=== PATIENT | female | born 1965 | race Caucasian/White ===

== ENCOUNTER → 2016-08-05 | Outpatient (CLI) | payer OTHER ==
--- NOTE | 2016-08-05 12:28 | XR ---
EXAMINATION TYPE: XR chest 2V DATE OF EXAM: 08/05/2016 HISTORY: R05 Cough. REFERENCE: Previous study dated 12/28/2015. FINDINGS: Lung volumes are mildly prominent. The lungs are clear. Pleural space are clear. Heart size is normal. IMPRESSION: NO ACUTE INTRATHORACIC ABNORMALITY.
--- NOTE | 2016-08-13 11:34 | P.ARTDOP ---
Arterial Doppler LOWER EXTREMITY ARTERIAL DOPPLER: DATE OF SERVICE: 08/05/2016 Reason for study: Bilateral leg pain Doppler waveforms: Multiphasic bilaterally throughout but blunted distally Pulse volume recording: mild blunting Pressure gradients: Mild distal gradients Ankle-brachial index: greater than 1 on the right and 0.95 on the left Toe preasure 77on the right 67 on the left Impression:Mild distal disease. Does not directly correlated with symptoms
== END | disposition home or self-care (01) ==
LOC: RADUSWWP 11:50
PROVIDERS: ATTEND Family Medicine
DX: M79.604 Pain in right leg (principal); M79.605 Pain in left leg; R05 Cough
CPT/HCPCS: 71020; 93923

== ENCOUNTER 2017-09-16 09:05 | Emergency (ER) | payer MEDICARE, OTHER ==
[2017-09-16] MEDS ORDERED: SODIUM CHLORIDE 0.9% 1,000 ML IV STA ×2 (09:10→10:06)
[2017-09-16 09:13] VITALS: TEMP 97.7
--- NOTE | 2017-09-16 09:14 | ED ---
Weakness HPI - General Stated complaint: POSS CVA Time Seen by Provider: 09/16/17 09:05 Source: patient, EMS, RN notes reviewed, old records reviewed Mode of arrival: EMS - History of Present Illness Initial comments: This is a 52-year-old female history of CVA depression was at a bus stop on the way to the [facility] this morning when she felt like she was falling or leaning to the left. EMS was called she was brought here for evaluation per the assessment she had a blood sugar of 77 with a blood pressure 113/70 no new deficits that she has have some left residual deficit from her previous CVA was some question of whether she has some lid lag on the left. She denies any headache dizziness fevers chills nausea vomiting sweats or other symptoms at this time. MD Complaint: difficulty walking - Related Data Home Medications Medication Instructions Recorded Confirmed ARIPiprazole IM [Abilify Maintena] 400 mg IM Q28D 07/27/15 09/16/17 Albuterol Inhaler [Ventolin Hfa 2 puff INHALATION RT-Q4H PRN 09/16/17 09/16/17 Inhaler] Albuterol Nebulized [Ventolin 2.5 mg INHALATION RT-Q4H PRN 09/16/17 09/16/17 Nebulized] Alendronate Sodium [Fosamax] 70 mg PO TU 09/16/17 09/16/17 Aspirin EC [Ecotrin Low Dose] 81 mg PO DAILY 09/16/17 09/16/17 Carvedilol [Coreg] 12.5 mg PO DAILY 09/16/17 09/16/17 Cholecalciferol [Vitamin D3] 5,000 unit PO DAILY 09/16/17 09/16/17 Cyanocobalamin (Vitamin B-12) 1,000 mcg PO DAILY 09/16/17 09/16/17 [Vitamin B-12] Lisinopril [Prinivil] 5 mg PO DAILY 09/16/17 09/16/17 Magnesium Oxide 400 mg PO DAILY 09/16/17 09/16/17 Nicotine [Nicoderm Cq] 1 patch TRANSDERM DAILY 09/16/17 09/16/17 Salmeterol Xinafoate [Serevent 1 puff INHALATION RT-BID 09/16/17 09/16/17 Diskus] Sulfamethox-Tmp 800-160Mg [Bactrim 1 tab PO Q12HR 09/16/17 09/16/17 DS 800-160 mg] guaiFENesin [Mucinex] 600 mg PO Q12HR 09/16/17 09/16/17 hydrOXYzine PAMOATE [Vistaril] 50 mg PO BID 09/16/17 09/16/17 metFORMIN HCL [Glucophage] 500 mg PO BID 09/16/17 09/16/17 traZODone HCL 100 mg PO HS 09/16/17 09/16/17 Previous Rx's Medication Instructions Recorded Ibuprofen [Motrin] 600 mg PO TID PRN #90 tab 07/26/15 Atorvastatin [Lipitor] 40 mg PO HS #30 tab 10/11/15 Clopidogrel Bisulfate [Plavix] 75 mg PO DAILY #30 tab 10/11/15 Sertraline [Zoloft] 100 mg PO HS #0 10/11/15 Allergies Allergy/AdvReac Type Severity Reaction Status Date / Time No Known Allergies Allergy Verified 10/09/15 08:47 Review of Systems ROS Statement: Those systems with pertinent positive or pertinent negative responses have been documented in the HPI. ROS Other: All systems not noted in ROS Statement are negative. Past Medical History Past Medical History: CVA/TIA, Diabetes Mellitus, Hypertension, Musculoskeletal Disorder Additional Past Medical History / Comment(s): neuropathy, psorisis, MS History of Any Multi-Drug Resistant Organisms: None Reported Past Surgical History: Hernia Repair Past Anesthesia/Blood Transfusion Reactions: No Reported Reaction Past Psychological History: Anxiety, Depression Smoking Status: Current every day smoker Past Alcohol Use History: Daily Past Drug Use History: Cocaine, Marijuana - Past Family History Mother History Unknown: Yes Additional Family Medical History / Comment(s): Patient states she has not had any contact with her parents for 16 years. Brother(s) Additional Family Medical History / Comment(s): He has one brother that she has not been in contact with. Patient has one adopted sister. Patient has one daughter that is healthy. Father History Unknown: Yes Additional Family Medical History / Comment(s): unknown - pt poor historian General Exam - General Exam Comments Initial Comments: Is a well-developed well-nourished awake alert oriented 3 female General appearance: alert, in no apparent distress Head exam: Present: atraumatic, normocephalic, normal inspection Eye exam: Present: normal appearance, PERRL, other (Very slight evidence of left lateral lag residual from her previous CVA she states). Absent: scleral icterus, conjunctival injection, periorbital swelling ENT exam: Present: mucous membranes dry Neck exam: Present: normal inspection. Absent: tenderness, meningismus, lymphadenopathy Respiratory exam: Present: normal lung sounds bilaterally. Absent: respiratory distress, wheezes, rales, rhonchi, stridor Cardiovascular Exam: Present: regular rate, normal rhythm, normal heart sounds. Absent: systolic murmur, diastolic murmur, rubs, gallop, clicks GI/Abdominal exam: Present: soft, normal bowel sounds. Absent: distended, tenderness, guarding, rebound, rigid Extremities exam: Present: normal inspection, full ROM, normal capillary refill. Absent: tenderness, pedal edema, joint swelling, calf tenderness Back exam: Present: normal inspection Neurological exam: Present: alert, oriented X3, CN II-XII intact, motor sensory deficit (Slight sensory deficits left lower extremity residual from her previous stroke she states) Psychiatric exam: Present: normal affect, normal mood Skin exam: Present: warm, dry, intact, normal color. Absent: rash Course Vital Signs 09/16/17 09/16/17 09:11 10:44 Temperature 97.7 F Pulse Rate 62 73 Pulse Rate [ 58 L [employer] ] Pulse Rate [ 77 Sitting] Pulse Rate [ 73 Standing] Respiratory 16 18 Rate Blood Pressure 118/60 101/57 Blood Pressure 106/58 [Right Arm Supine] Blood Pressure 101/57 [Sitting] Blood Pressure 109/57 [Standing] O2 Sat by Pulse 95 97 Oximetry - Reevaluation(s) Reevaluation #1: 09/16/17 11:35 Reevaluation after IV fluids patient does feel improved no new findings EKG Findings - EKG Results: EKG: interpreted by AUDIE, sinus rhythm (Sinus rhythm of 60. Interval 150 to QRS 88 QT since QTC 422/422 evidence of early repolarization no acute ST-T wave changes) Medical Decision Making - Medical Decision Making I did discuss the findings with the patient the presentation is not consistent with CVA or TIA. Patient had some weakness likely secondary to dehydration. Patient wants to go home she'll be discharged with follow-up with her doctor she is encouraged to increase her oral fluid consumption - Lab Data Result diagrams: 09/16/17 09:12 09/16/17 09:12 Lab Results 09/16/17 09/16/17 09/16/17 Range/Units 09:12 09:12 09:12 WBC (3.8-10.6) k/uL RBC (3.80-5.40) m/uL Hgb (11.4-16.0) gm/dL Hct (34.0-46.0) % MCV (80.0-100.0) fL MCH (25.0-35.0) pg MCHC (31.0-37.0) g/dL RDW (11.5-15.5) % Plt Count (150-450) k/uL Neutrophils % % Lymphocytes % % Monocytes % % Eosinophils % % Basophils % % Neutrophils # (1.3-7.7) k/uL Lymphocytes # (1.0-4.8) k/uL Monocytes # (0-1.0) k/uL Eosinophils # (0-0.7) k/uL Basophils # (0-0.2) k/uL Sodium 135 L (137-145) mmol/L Potassium 5.4 H (3.5-5.1) mmol/L Chloride 108 H (98-107) mmol/L Carbon Dioxide 19 L (22-30) mmol/L Anion Gap 8 mmol/L BUN 28 H (7-17) mg/dL Creatinine 1.80 H (0.52-1.04) mg/dL Est GFR (CKD-EPI)AfAm 37 (>60 ml/min/1.73 sqM) Est GFR (CKD-EPI)NonAf 32 (>60 ml/min/1.73 sqM) Glucose 88 (74-99) mg/dL Calcium 9.5 (8.4-10.2) mg/dL Magnesium 2.0 (1.6-2.3) mg/dL Total Bilirubin 0.3 (0.2-1.3) mg/dL AST 24 (14-36) U/L ALT 23 (9-52) U/L Alkaline Phosphatase 57 (38-126) U/L Ammonia <9 (<30) umol/L Total Creatine Kinase 125 (30-135) U/L CK-MB (CK-2) 1.1 (0.0-2.4) ng/mL CK-MB (CK-2) Rel Index 0.9 Troponin I <0.012 (0.000-0.034) ng/mL Total Protein 6.5 (6.3-8.2) g/dL Albumin 4.0 (3.5-5.0) g/dL Amylase 66 (30-110) U/L Lipase 62 (23-300) U/L Serum Alcohol <10 mg/dL 09/16/17 Range/Units 09:12 WBC 8.2 (3.8-10.6) k/uL RBC 4.58 (3.80-5.40) m/uL Hgb 12.9 (11.4-16.0) gm/dL Hct 38.7 (34.0-46.0) % MCV 84.5 (80.0-100.0) fL MCH 28.1 (25.0-35.0) pg MCHC 33.2 (31.0-37.0) g/dL RDW 12.9 (11.5-15.5) % Plt Count 343 (150-450) k/uL Neutrophils % 63 % Lymphocytes % 29 % Monocytes % 4 % Eosinophils % 2 % Basophils % 0 % Neutrophils # 5.1 (1.3-7.7) k/uL Lymphocytes # 2.4 (1.0-4.8) k/uL Monocytes # 0.3 (0-1.0) k/uL Eosinophils # 0.2 (0-0.7) k/uL Basophils # 0.0 (0-0.2) k/uL Sodium (137-145) mmol/L Potassium (3.5-5.1) mmol/L Chloride (98-107) mmol/L Carbon Dioxide (22-30) mmol/L Anion Gap mmol/L BUN (7-17) mg/dL Creatinine (0.52-1.04) mg/dL Est GFR (CKD-EPI)AfAm (>60 ml/min/1.73 sqM) Est GFR (CKD-EPI)NonAf (>60 ml/min/1.73 sqM) Glucose (74-99) mg/dL Calcium (8.4-10.2) mg/dL Magnesium (1.6-2.3) mg/dL Total Bilirubin (0.2-1.3) mg/dL AST (14-36) U/L ALT (9-52) U/L Alkaline Phosphatase (38-126) U/L Ammonia (<30) umol/L Total Creatine Kinase (30-135) U/L CK-MB (CK-2) (0.0-2.4) ng/mL CK-MB (CK-2) Rel Index Troponin I (0.000-0.034) ng/mL Total Protein (6.3-8.2) g/dL Albumin (3.5-5.0) g/dL Amylase (30-110) U/L Lipase (23-300) U/L Serum Alcohol mg/dL - Radiology Data Radiology results: report reviewed (I did review the imaging and report no acute findings.), image reviewed Disposition Clinical Impression: Syncope, near, Dehydration Disposition: HOME SELF-CARE Condition: Good Instructions: Near Syncope (ED), Dehydration (ED) Is patient prescribed a controlled substance at d/c from ED?: No Referrals: [facility] [Primary Care Provider] - 1-2 days
[2017-09-16 09:35] LABS: Basophils % (A) 0 %; Eosinophils # (A) 0.2 k/uL (0-0.7); Eosinophils % (A) 2 %; HCT 38.7 % (34.0-46.0); HGB 12.9 gm/dL (11.4-16.0); Lymphocytes # (A) 2.4 k/uL (1.0-4.8); Lymphocytes % (A) 29 %; MCH 28.1 pg (25.0-35.0); MCHC 33.2 g/dL (31.0-37.0); MCV 84.5 fL (80.0-100.0); Mean Platelet Volume 6.1; Monocytes # (A) 0.3 k/uL (0-1.0); Monocytes % (A) 4 %; Neutrophils # (A) 5.1 k/uL (1.3-7.7); Neutrophils % (A) 63 %; Platelet Count 343 k/uL (150-450); RBC 4.58 m/uL (3.80-5.40); RDW 12.9 % (11.5-15.5); WBC 8.2 k/uL (3.8-10.6)
[2017-09-16 09:47] LABS: ALT 23 U/L (9-52); AST 24 U/L (14-36); Alcohol <10 mg/dL; Alkaline Phosphatase 57 U/L (38-126); Amylase 66 U/L (30-110); Anion Gap 8 mmol/L; Blood Urea Nitrogen 28 mg/dL (7-17); Calcium 9.5 mg/dL (8.4-10.2); Carbon Dioxide 19 mmol/L (22-30); Chloride 108 mmol/L (98-107); Glucose 88 mg/dL (74-99); Lipase 62 U/L (23-300); Potassium 5.4 mmol/L (3.5-5.1); Sodium 135 mmol/L (137-145); Total Bilirubin 0.3 mg/dL (0.2-1.3); Total Protein 6.5 g/dL (6.3-8.2)
--- NOTE | 2017-09-16 09:57 | CT ---
EXAMINATION TYPE: CT brain wo con DATE OF EXAM: 09/16/2017 HISTORY: Pain or headache per order. History of stroke with new onset left-sided weakness CT DLP: 1088 mGycm. Automated Exposure Control for Dose Reduction was Utilized. TECHNIQUE: CT scan of the head is performed without contrast. COMPARISON: CT brain May 27, 2015. MRI brain October 09, 2015. FINDINGS: There is no acute intracranial hemorrhage or midline shift identified. There is diffuse v entricular and sulcal prominence consistent with diffuse age-related cerebral atrophy. There is some low-attenuation in the periventricular white matter consistent with chronic small vessel ischemic ch winsome. Area of low-attenuation right frontal parietal region extending into superior temporal lobe li irma reflects progression of MCA distribution infarct from prior MRI October 09, 2015. There is ex vac uo dilatation of the right lateral ventricle at level of temporal and occipital horns. Soft tissue de nsity bilateral external auditory canals is felt to reflect cerumen. The globes are intact and the vi sualized sinuses are clear. IMPRESSION: No acute intracranial hemorrhage or midline shift. There is background mild diffuse age -related cerebral atrophy and mild to moderate chronic small vessel ischemic change redemonstrated. T here is presumed old infarct right MCA distribution redemonstrated. If clinical concern for acute stroke persists further investigation with MRI study may be warranted.
[2017-09-16 09:59] LABS: Creatine Kinase 125 U/L (30-135)
[2017-09-16 10:12] LABS: Creatine Kinase MB 1.1 ng/mL (0.0-2.4); Troponin I <0.012 ng/mL (0.000-0.034)
[2017-09-16 10:48] VITALS: RESP 18
[2017-09-16 12:08] VITALS: BP 114/56; PULSE 94
[2017-09-16 12:17] LABS: Glucose,Whole Blood 99 mg/dL (75-99)
== END 2017-09-16 12:06 | disposition home or self-care (01) ==
LOC: EC 09:05
DX: E86.0 Dehydration (principal); R55 Syncope and collapse; R26.2 Difficulty in walking, not elsewhere classified; E11.40 Type 2 diabetes mellitus with diabetic neuropathy, unspecified; I10 Essential (primary) hypertension; L40.9 Psoriasis, unspecified; F32.9 Major depressive disorder, single episode, unspecified; F41.9 Anxiety disorder, unspecified; F17.200 Nicotine dependence, unspecified, uncomplicated; Z86.73 Personal history of transient ischemic attack (TIA), and cerebral infarction without residual deficits; Z79.82 Long term (current) use of aspirin; Z79.84 Long term (current) use of oral hypoglycemic drugs; Z79.899 Other long term (current) drug therapy
CPT/HCPCS: 36415; 70450; 80053; 80320; 82140; 82150; 82550; 82553; 83690; 83735; 84484; 85025; 93005; 96360; 96361; 99285

== ENCOUNTER 2018-01-25 13:27 | Emergency (ER) | payer MEDICARE, OTHER ==
--- NOTE | 2018-01-25 14:03 | ED ---
Abdominal Pain HPI - General Chief Complaint: Abdominal Pain Stated Complaint: ABDOMINAL PAIN Time Seen by Provider: 01/25/18 13:59 Source: patient Mode of arrival: ambulatory Limitations: no limitations - History of Present Illness Initial Comments: 52-year-old female with past medical history of hypertension, type 2 diabetes [id number], previous CVAs/TIAs presenting today for chief complaint of right upper quadrant pain x 1.5 ago. Patient states that about half hour prior to arrival patient experienced sharp right upper quadrant pain that lasted for half an hour, at this time she states that she was playing candy crush in bed denies radiation of the pain. Patient denies any chest pain, shortness breath, dyspnea on exertion, diaphoresis, jaw pain, upper extremity paresthesias/pain, neck pain, recent meal/oral intake, drug use, or cough, sputum production, wheezing, exogenous estrogen use, calf pain/redness, history of cancer, immobilization or recent surgery, previous DVT/PE hemoptysis. pt does admit to softer stools/diarrhea for the past week, denies melena or hematochezia. Pt states previous drug user of cocaine, denies current use states 3 years clean. Patient states that she was concerned due to the intensity of the pain and presented for evaluation. Patient called EMS. Pt states since arrival all pain has resolved, and that "she feels silly for evening coming now". Upon arrival patient's vital signs within normal limits. Pt appears well, no signs of acute distress. - Related Data Home Medications Medication Instructions Recorded Confirmed ARIPiprazole IM [Abilify Maintena] 400 mg IM Q28D 07/27/15 01/25/18 Albuterol Inhaler [Ventolin Hfa 2 puff INHALATION RT-Q4H PRN 09/16/17 01/25/18 Inhaler] Albuterol Nebulized [Ventolin 2.5 mg INHALATION RT-Q4H PRN 09/16/17 01/25/18 Nebulized] Alendronate Sodium [Fosamax] 70 mg PO TU 09/16/17 01/25/18 Aspirin EC [Ecotrin Low Dose] 81 mg PO DAILY 09/16/17 01/25/18 Carvedilol [Coreg] 12.5 mg PO DAILY 09/16/17 01/25/18 Cholecalciferol [Vitamin D3] 5,000 unit PO DAILY 09/16/17 01/25/18 Cyanocobalamin (Vitamin B-12) 1,000 mcg PO DAILY 09/16/17 01/25/18 [Vitamin B-12] Lisinopril [Prinivil] 5 mg PO DAILY 09/16/17 01/25/18 Magnesium Oxide 400 mg PO DAILY 09/16/17 01/25/18 Nicotine [Nicoderm Cq] 1 patch TRANSDERM DAILY 09/16/17 01/25/18 Salmeterol Xinafoate [Serevent 1 puff INHALATION RT-BID 09/16/17 01/25/18 Diskus] guaiFENesin [Mucinex] 600 mg PO Q12HR PRN 09/16/17 01/25/18 hydrOXYzine PAMOATE [Vistaril] 50 mg PO BID 09/16/17 01/25/18 metFORMIN HCL [Glucophage] 500 mg PO BID 09/16/17 01/25/18 traZODone HCL 100 mg PO HS 09/16/17 01/25/18 Famotidine [Pepcid] 20 mg PO BID 01/25/18 01/25/18 Previous Rx's Medication Instructions Recorded Ibuprofen [Motrin] 600 mg PO TID PRN #90 tab 07/26/15 Atorvastatin [Lipitor] 40 mg PO HS #30 tab 10/11/15 Clopidogrel Bisulfate [Plavix] 75 mg PO DAILY #30 tab 10/11/15 Sertraline [Zoloft] 100 mg PO HS #0 10/11/15 Allergies Allergy/AdvReac Type Severity Reaction Status Date / Time No Known Allergies Allergy Verified 01/25/18 13:50 Review of Systems ROS Statement: Those systems with pertinent positive or pertinent negative responses have been documented in the HPI. ROS Other: All systems not noted in ROS Statement are negative. Constitutional: Denies: fever, chills, night sweats ENT: Denies: ear pain, throat pain Respiratory: Denies: cough, dyspnea, wheezes, hemoptysis Cardiovascular: Denies: chest pain, palpitations, dyspnea on exertion, orthopnea , edema Endocrine: Denies: fatigue Gastrointestinal: Reports: abdominal pain. Denies: nausea, vomiting, diarrhea, constipation, hematemesis, melena, hematochezia Genitourinary: Denies: urgency, dysuria, frequency, hematuria Musculoskeletal: Denies: back pain Skin: Denies: rash, lesions Neurological: Denies: headache, weakness, numbness, paresthesias, confusion Past Medical History Past Medical History: CVA/TIA, Diabetes Mellitus, Hypertension, Musculoskeletal Disorder Additional Past Medical History / Comment(s): neuropathy, psorisis, MS History of Any Multi-Drug Resistant Organisms: None Reported Past Surgical History: Hernia Repair Past Anesthesia/Blood Transfusion Reactions: No Reported Reaction Past Psychological History: Anxiety, Depression Smoking Status: Current every day smoker Past Alcohol Use History: None Reported, Daily Past Drug Use History: None Reported, Cocaine, Marijuana - Past Family History Mother History Unknown: Yes Additional Family Medical History / Comment(s): Patient states she has not had any contact with her parents for 16 years. Brother(s) Additional Family Medical History / Comment(s): He has one brother that she has not been in contact with. Patient has one adopted sister. Patient has one daughter that is healthy. Father History Unknown: Yes Additional Family Medical History / Comment(s): unknown - pt poor historian General Exam - General Exam Comments Initial Comments: General: The patient is awake and alert, in no distress, and does not appear acutely ill. Eye: +3 pupils are equal, round and reactive to light, extra-ocular movements are intact. No nystagmus. There is normal conjunctiva bilaterally. No signs of icterus. Ears, nose, mouth and throat: There are moist mucous membranes and no oral lesions. Neck: The neck is supple, there is no tenderness or JVD. Cardiovascular: There is a regular rate and rhythm. No murmur, rub or gallop is appreciated. Respiratory: Lungs are clear to auscultation, respirations are non-labored, breath sounds are equal. No wheezes, stridor, rales, or rhonchi. Gastrointestinal: No noted diaphoresis, jaundice, pallor, protecting postures or squirming. Symmetrical pigmentation of abdomen without signs of inflammation, scars, or striae. Umbilicus mildline, inverted without swelling. No dilated veins. No noted abdominal distention. No visible masses. No peristalsis, aortic pulsations , or ventral hernia. Bowel sounds audible in all 4 quadrants, unremarkable. No friction rubs or venous hums. No epigastic, hepatic or abdominal bruits. Mild tenderness of the RUQ, remainder of abdominal/pelvic exam benign no pain to light or deep palpation. Liver edge, not palpable. Spleen edge, right and left kidney not palpable. Superior bladder margin non-tender. Special Testing: Negative [place], Rovsing, McBurney, Vero, cutaneous hyperesthesia. Iliopsoas and obturator tests negative bilaterally. Negative Heel Jar test/ chuy sign. No CVA tenderness. Digital rectal exam deferred. Negative sams turners or cullens sign Musculoskeletal: Normal ROM, no tenderness. Strength 5/5. Sensation intact. Radial and DP pulses equal bilaterally 2+. Neurological: A&O x 3. CN II-XII intact, There are no obvious motor or sensory deficits. Coordination appears grossly intact. Speech is normal. Skin: Skin is warm and dry and no rashes or lesions are noted. No noted lower extremity edema, negative Homans, no pain to deep palpation of the Psychiatric: Cooperative, appropriate mood & affect, normal judgment. Limitations: no limitations Course Vital Signs 01/25/18 01/25/18 01/25/18 13:38 16:52 18:33 Temperature 98.3 F Pulse Rate 61 47 L 50 L Respiratory 18 18 18 Rate Blood Pressure 117/62 141/80 142/63 O2 Sat by Pulse 96 99 52 L Oximetry 01/25/18 01/25/18 19:30 20:12 Temperature 97.9 F Pulse Rate 53 L 52 L Respiratory 16 Rate Blood Pressure 140/50 O2 Sat by Pulse 95 96 Oximetry Medical Decision Making - Medical Decision Making 52yo female presenting with RUQ pain with diarrhea/soft stools. Concerning for abdominal process. Given pt RF concern for atypical presentation of ACS, although pt denies CP, dyspnea or other concerning symptoms. ASA given. Abdominal exam benign, mild RUQ pain. Pt denies current symptoms. Laboratory findings unremarkable as noted above. Initial troponin (-). Repeat troponin 4 hours later (-). EKG repeated, no changes. EKG reviewed by myself and Dr. Gutierrez- no signs concerning for ACS at this time. CT chest/abdomen obtained, revealing findings concerning for enteritis. US gallbladder (-). I discussed findings with patient and recommended pt obtaining CT records to review with primary provider for further follow-up. Pt verbalized understanding. Given pt history, not based on clinical findings or suspicion I recommended admission for observation for third troponin. Pt declined, stating she would like to be discharged and will not stay any longer- I urged observation of her patient continued decline. Pt states she has had no symptoms since arrival and feels fine. Pt was discharge, VS remained stable. Pt well appearing, continuing to deny symptoms. Return parameters discussed at length with patient prior to discharge, verbalized understanding. Case discussed with Dr. Gutierrez prior to discharge who agreed with impression and plan. - Lab Data Result diagrams: 01/25/18 14:35 01/25/18 14:35 Lab Results 01/25/18 01/25/18 01/25/18 Range/Units 14:35 14:35 14:35 WBC 8.6 (3.8-10.6) k/uL RBC 4.61 (3.80-5.40) m/uL Hgb 12.9 (11.4-16.0) gm/dL Hct 40.2 (34.0-46.0) % MCV 87.1 (80.0-100.0) fL MCH 28.0 (25.0-35.0) pg MCHC 32.2 (31.0-37.0) g/dL RDW 13.0 (11.5-15.5) % Plt Count 374 (150-450) k/uL Neutrophils % 58 % Lymphocytes % 31 % Monocytes % 4 % Eosinophils % 5 % Basophils % 1 % Neutrophils # 5.0 (1.3-7.7) k/uL Lymphocytes # 2.6 (1.0-4.8) k/uL Monocytes # 0.3 (0-1.0) k/uL Eosinophils # 0.5 (0-0.7) k/uL Basophils # 0.1 (0-0.2) k/uL PT (9.0-12.0) sec INR (<1.2) APTT (22.0-30.0) sec Sodium 139 (137-145) mmol/L Potassium 4.0 (3.5-5.1) mmol/L Chloride 104 (98-107) mmol/L Carbon Dioxide 24 (22-30) mmol/L Anion Gap 11 mmol/L BUN 17 (7-17) mg/dL Creatinine 0.97 (0.52-1.04) mg/dL Est GFR (CKD-EPI)AfAm 77 (>60 ml/min/1.73 sqM) Est GFR (CKD-EPI)NonAf 67 (>60 ml/min/1.73 sqM) Glucose 145 H (74-99) mg/dL Calcium 10.2 (8.4-10.2) mg/dL Total Bilirubin 0.3 (0.2-1.3) mg/dL AST 24 (14-36) U/L ALT 33 (9-52) U/L Alkaline Phosphatase 71 (38-126) U/L Total Creatine Kinase 62 (30-135) U/L CK-MB (CK-2) 0.3 (0.0-2.4) ng/mL CK-MB (CK-2) Rel Index 0.5 Troponin I <0.012 (0.000-0.034) ng/mL Total Protein 6.7 (6.3-8.2) g/dL Albumin 4.0 (3.5-5.0) g/dL Amylase 78 (30-110) U/L Lipase 93 (23-300) U/L Urine Color Urine Appearance (Clear) Urine pH (5.0-8.0) Ur Specific [place] (1.001-1.035) Urine Protein (Negative) Urine Glucose (UA) (Negative) Urine Ketones (Negative) Urine Blood (Negative) Urine Nitrite (Negative) Urine Bilirubin (Negative) Urine Urobilinogen (<2.0) mg/dL Ur Leukocyte Esterase (Negative) Urine RBC (0-5) /hpf Urine WBC (0-5) /hpf Ur Squamous Epith Cells (0-4) /hpf 01/25/18 01/25/18 01/25/18 Range/Units 14:35 16:35 18:34 WBC (3.8-10.6) k/uL RBC (3.80-5.40) m/uL Hgb (11.4-16.0) gm/dL Hct (34.0-46.0) % MCV (80.0-100.0) fL MCH (25.0-35.0) pg MCHC (31.0-37.0) g/dL RDW (11.5-15.5) % Plt Count (150-450) k/uL Neutrophils % % Lymphocytes % % Monocytes % % Eosinophils % % Basophils % % Neutrophils # (1.3-7.7) k/uL Lymphocytes # (1.0-4.8) k/uL Monocytes # (0-1.0) k/uL Eosinophils # (0-0.7) k/uL Basophils # (0-0.2) k/uL PT 11.2 (9.0-12.0) sec INR 1.1 (<1.2) APTT 25.0 (22.0-30.0) sec Sodium (137-145) mmol/L Potassium (3.5-5.1) mmol/L Chloride (98-107) mmol/L Carbon Dioxide (22-30) mmol/L Anion Gap mmol/L BUN (7-17) mg/dL Creatinine (0.52-1.04) mg/dL Est GFR (CKD-EPI)AfAm (>60 ml/min/1.73 sqM) Est GFR (CKD-EPI)NonAf (>60 ml/min/1.73 sqM) Glucose (74-99) mg/dL Calcium (8.4-10.2) mg/dL Total Bilirubin (0.2-1.3) mg/dL AST (14-36) U/L ALT (9-52) U/L Alkaline Phosphatase (38-126) U/L Total Creatine Kinase (30-135) U/L CK-MB (CK-2) (0.0-2.4) ng/mL CK-MB (CK-2) Rel Index Troponin I <0.012 (0.000-0.034) ng/mL Total Protein (6.3-8.2) g/dL Albumin (3.5-5.0) g/dL Amylase (30-110) U/L Lipase (23-300) U/L Urine Color Light Yellow Urine Appearance Clear (Clear) Urine pH 7.0 (5.0-8.0) Ur Specific [place] 1.049 H (1.001-1.035) Urine Protein Negative (Negative) Urine Glucose (UA) Negative (Negative) Urine Ketones Negative (Negative) Urine Blood Negative (Negative) Urine Nitrite Negative (Negative) Urine Bilirubin Negative (Negative) Urine Urobilinogen <2.0 (<2.0) mg/dL Ur Leukocyte Esterase Large H (Negative) Urine RBC 2 (0-5) /hpf Urine WBC 14 H (0-5) /hpf Ur Squamous Epith Cells 2 (0-4) /hpf - EKG Data EKG Comments: A 12-lead EKG was performed and shows the following: Rate is 57bpm, and rhythm is normal sinus. There are normal QRS complexes and normal R-wave progression. Non specific ST changes and PA segments appear normal. EKG reviewed by Dr Toure and Dr. Gutierrez. Second EKG: No changes, rate [address], PA normal. Sinus bradycardia. Evaluated by myself and Dr. Gutierrez. Disposition Clinical Impression: RUQ abdominal pain Disposition: HOME SELF-CARE Condition: Good Instructions: Abdominal Pain (ED) Additional Instructions: Please use medication as discussed. Please follow-up with family doctor in the next 2 days. Please return to emergency room if the symptoms increase or worsen or for any other concerns. Is patient prescribed a controlled substance at d/c from ED?: No Referrals: [facility] [Primary Care Provider] - 1-2 days Time of Disposition: 20:08
[2018-01-25] MEDS ORDERED: ASPIRIN 81 MG PO STA (14:17)
[2018-01-25 14:53] LABS: Basophils # (A) 0.1 k/uL (0-0.2); Basophils % (A) 1 %; Eosinophils # (A) 0.5 k/uL (0-0.7); Eosinophils % (A) 5 %; HCT 40.2 % (34.0-46.0); HGB 12.9 gm/dL (11.4-16.0); Lymphocytes # (A) 2.6 k/uL (1.0-4.8); Lymphocytes % (A) 31 %; MCHC 32.2 g/dL (31.0-37.0); MCV 87.1 fL (80.0-100.0); Mean Platelet Volume 6.3; Monocytes # (A) 0.3 k/uL (0-1.0); Monocytes % (A) 4 %; Neutrophils % (A) 58 %; Platelet Count 374 k/uL (150-450); RBC 4.61 m/uL (3.80-5.40); WBC 8.6 k/uL (3.8-10.6)
[2018-01-25 15:06] LABS: INR 1.1 (<1.2); Prothrombin Time 11.2 sec (9.0-12.0)
[2018-01-25 15:08] LABS: Calcium 10.2 mg/dL (8.4-10.2); Creatine Kinase 62 U/L (30-135); Total Bilirubin 0.3 mg/dL (0.2-1.3); Total Protein 6.7 g/dL (6.3-8.2)
[2018-01-25 15:19] LABS: Creatine Kinase MB 0.3 ng/mL (0.0-2.4); Troponin I <0.012 ng/mL (0.000-0.034)
[2018-01-25] MEDS ORDERED: SODIUM CHLORIDE 0.9% 1,000 ML IV ONE (15:39)
--- NOTE | 2018-01-25 16:05 | CT ---
EXAMINATION TYPE: CT chest abdomen w con DATE OF EXAM: 01/25/2018 COMPARISON: None HISTORY: RUQ and chest pain CT DLP: 896 mGycm. Automated Exposure Control for Dose Reduction was Utilized. CONTRAST: CT scan of the thorax and abdomen are performed without oral but with IV Contrast, patient injected w ith 160 mL of Isovue 300. FINDINGS: LUNGS: Dependent atelectasis bilateral lower lobes is present. There is additional patchy left basil ar linear scarring and/or atelectasis. No pleural effusion or pneumothorax is appreciated bilaterally . There is no suspicious nodules or masses. The tracheobronchial tree is patent. MEDIASTINUM: There are no greater than 1 cm hilar or mediastinal lymph nodes. No cardiomegaly or pe ricardial effusion is seen. Coronary artery calcification is present which is noted marker for coron tomer artery disease OTHER: No additional significant abnormality is seen. LIVER/GB: No significant abnormality is appreciated. PANCREAS: No significant abnormality is seen. SPLEEN: Small splenule in splenic hilum is incidentally seen. ADRENALS: No significant abnormality is seen. KIDNEYS: Asymmetric diminished size to left kidney with cortical thinning is seen. There is suspected significant stenosis at origin of left renal artery. Delayed excretion is noted. No hydronephrosis i s evident BOWEL: Evaluation bowel is suboptimal secondary to lack of enteric contrast. There is no suspicious s mall or large bowel dilatation. Areas of mild wall thickening and left-sided small bowel loops and ri ght-sided colon are present. Cannot exclude mild enterocolitis. Correlate clinically. LYMPH NODES: No greater than 1cm abdominal lymph nodes are appreciated. OSSEOUS STRUCTURES: Multilevel uncovertebral facet degenerative changes lower lumbar spine are seen. OTHER: There is moderate to severe plaque of aorta extending into branch vessels. IMPRESSION: Possible mild enterocolitis versus product of nondistention. Correlate clinically. Asymm etric marked atrophy to left kidney felt to be on basis of significant renal artery stenosis or occlu esme.
[2018-01-25 17:29] LABS: Appearance,Urine Clear (Clear); Bilirubin,Urine Negative (Negative); Blood,Urine Negative (Negative); Color,Urine Light Yellow; Glucose,Urine (UA) Negative (Negative); Ketones,Urine Negative (Negative); Leukocyte Esterase,Urine Large (Negative); Nitrite,Urine Negative (Negative); Protein,Urine Negative (Negative); RBC,Urine 2 /hpf (0-5); Squamous Epithelial Cell,Urine 2 /hpf (0-4); Urobilinogen,Urine <2.0 mg/dL (<2.0); WBC,Urine 14 /hpf (0-5)
--- NOTE | 2018-01-25 18:01 | US ---
EXAMINATION TYPE: US gallbladder DATE OF EXAM: 01/25/2018 COMPARISON: NONE CLINICAL HISTORY: Pain. RUQ pain EXAM MEASUREMENTS: Liver Length: 17.3 cm Gallbladder Wall: 0.4 cm CBD: 0.4 cm Right Kidney: 10.2 x 4.1 x 4.4 cm Pancreas: Tail obscured by overlying bowel gas Liver: wnl Gallbladder: Gallbladder wall upper limits. Evidence for sonographic Howard's sign: No CBD: wnl Right Kidney: wnl IMPRESSION: No gallstones or dilated ducts. Negative exam.
[2018-01-25 18:23] LABS: Specific Gravity,Urine 1.049 (1.001-1.035)
[2018-01-25 20:14] VITALS: BP 140/50; PULSE 52; RESP 16; TEMP 97.9
== END 2018-01-25 20:19 | disposition home or self-care (01) ==
LOC: EC 13:27
DX: R10.11 Right upper quadrant pain (principal); R00.1 Bradycardia, unspecified; R19.7 Diarrhea, unspecified; I10 Essential (primary) hypertension; E11.40 Type 2 diabetes mellitus with diabetic neuropathy, unspecified; F32.9 Major depressive disorder, single episode, unspecified; F41.9 Anxiety disorder, unspecified; F17.200 Nicotine dependence, unspecified, uncomplicated; Z79.82 Long term (current) use of aspirin; Z79.84 Long term (current) use of oral hypoglycemic drugs; Z79.899 Other long term (current) drug therapy; Z86.73 Personal history of transient ischemic attack (TIA), and cerebral infarction without residual deficits
CPT/HCPCS: 36415; 93005; 80053; 82150; 82550; 82553; 83690; 84484; 85025; 85610; 85730; 81001; 76705; 71260; 74160; 99285; 96360; Q9967

== ENCOUNTER 2018-01-26 12:25 | Emergency (ER) | payer MEDICARE, OTHER ==
--- NOTE | 2018-01-26 13:53 | ED ---
General Adult HPI - General Chief complaint: Back Pain/Injury Stated complaint: lower back pain-revisit Time Seen by Provider: 01/26/18 13:31 Source: patient, RN notes reviewed Mode of arrival: ambulatory Limitations: no limitations - History of Present Illness Initial comments: 52-year-old female with a past medical history of diabetes, hypertension, musculoskeletal disorder presents to the emergency department for a chief complaint of low back pain. Patient states this started about 3 hours prior to arrival. She states pain is worsened with movement. She states it is across her lower back laterally. Patient denies any upper back pain. She denies any chest or abdominal pain at this time. Patient has not had any Motrin or Tylenol for this. Patient denies any bladder or bowel changes. She denies any saddle anesthesia. No numbness or tingling down the legs. She has no radiating pain. Patient denies any weakness in the legs. No fevers or chills at home. Patient has no other complaints at this time including shortness of breath, chest pain, abdominal pain, nausea or vomiting, headache, or visual changes. - Related Data Home Medications Medication Instructions Recorded Confirmed ARIPiprazole IM [Abilify Maintena] 400 mg IM Q28D 07/27/15 01/25/18 Albuterol Inhaler [Ventolin Hfa 2 puff INHALATION RT-Q4H PRN 09/16/17 01/25/18 Inhaler] Albuterol Nebulized [Ventolin 2.5 mg INHALATION RT-Q4H PRN 09/16/17 01/25/18 Nebulized] Alendronate Sodium [Fosamax] 70 mg PO TU 09/16/17 01/25/18 Aspirin EC [Ecotrin Low Dose] 81 mg PO DAILY 09/16/17 01/25/18 Carvedilol [Coreg] 12.5 mg PO DAILY 09/16/17 01/25/18 Cholecalciferol [Vitamin D3] 5,000 unit PO DAILY 09/16/17 01/25/18 Cyanocobalamin (Vitamin B-12) 1,000 mcg PO DAILY 09/16/17 01/25/18 [Vitamin B-12] Lisinopril [Prinivil] 5 mg PO DAILY 09/16/17 01/25/18 Magnesium Oxide 400 mg PO DAILY 09/16/17 01/25/18 Nicotine [Nicoderm Cq] 1 patch TRANSDERM DAILY 09/16/17 01/25/18 Salmeterol Xinafoate [Serevent 1 puff INHALATION RT-BID 09/16/17 01/25/18 Diskus] guaiFENesin [Mucinex] 600 mg PO Q12HR PRN 09/16/17 01/25/18 hydrOXYzine PAMOATE [Vistaril] 50 mg PO BID 09/16/17 01/25/18 metFORMIN HCL [Glucophage] 500 mg PO BID 09/16/17 01/25/18 traZODone HCL 100 mg PO HS 09/16/17 01/25/18 Famotidine [Pepcid] 20 mg PO BID 01/25/18 01/25/18 Previous Rx's Medication Instructions Recorded Ibuprofen [Motrin] 600 mg PO TID PRN #90 tab 07/26/15 Atorvastatin [Lipitor] 40 mg PO HS #30 tab 10/11/15 Clopidogrel Bisulfate [Plavix] 75 mg PO DAILY #30 tab 10/11/15 Sertraline [Zoloft] 100 mg PO HS #0 10/11/15 Allergies Allergy/AdvReac Type Severity Reaction Status Date / Time No Known Allergies Allergy Verified 01/26/18 12:41 Review of Systems ROS Statement: Those systems with pertinent positive or pertinent negative responses have been documented in the HPI. ROS Other: All systems not noted in ROS Statement are negative. Past Medical History Past Medical History: CVA/TIA, Diabetes Mellitus, Hypertension, Musculoskeletal Disorder Additional Past Medical History / Comment(s): neuropathy, psorisis, MS History of Any Multi-Drug Resistant Organisms: None Reported Past Surgical History: Hernia Repair Past Anesthesia/Blood Transfusion Reactions: No Reported Reaction Past Psychological History: Anxiety, Depression Smoking Status: Current every day smoker Past Alcohol Use History: None Reported, Daily Past Drug Use History: None Reported, Cocaine, Marijuana - Past Family History Mother History Unknown: Yes Additional Family Medical History / Comment(s): Patient states she has not had any contact with her parents for 16 years. Brother(s) Additional Family Medical History / Comment(s): He has one brother that she has not been in contact with. Patient has one adopted sister. Patient has one daughter that is healthy. Father History Unknown: Yes Additional Family Medical History / Comment(s): unknown - pt poor historian General Exam Limitations: no limitations General appearance: alert, in no apparent distress Head exam: Present: atraumatic, normocephalic, normal inspection Eye exam: Present: normal appearance, PERRL, EOMI. Absent: scleral icterus, conjunctival injection, periorbital swelling ENT exam: Present: normal exam, mucous membranes moist Neck exam: Present: normal inspection, full ROM. Absent: tenderness, meningismus, lymphadenopathy Respiratory exam: Present: normal lung sounds bilaterally. Absent: respiratory distress, wheezes, rales, rhonchi, stridor Cardiovascular Exam: Present: regular rate, normal rhythm, normal heart sounds. Absent: systolic murmur, diastolic murmur, rubs, gallop, clicks GI/Abdominal exam: Present: soft, normal bowel sounds. Absent: distended, tenderness (No tenderness of the abdomen), guarding, rebound, rigid Extremities exam: Present: full ROM (Full Range of motion of knees and hips and lower extremities bilaterally), normal capillary refill (Capillary refill less than 2 seconds, DP pulse 2+ in lower extremities bilaterally), other (Sensation intact in lower extremities bilaterally). Absent: pedal edema (No pedal edema noted) Back exam: Present: tenderness (Tenderness on the paraspinal areas of lateral back. No pinpoint spinal tenderness.), other. Absent: CVA tenderness (R), CVA tenderness (L) Neurological exam: Present: alert, oriented X3, CN II-XII intact, normal gait ( Ambulatory in the emergency department without any difficulty) Expanded Sensory exam: Lower Extremity Light Touch: Normal, Lower Extremity Pin Prick: Normal Motor strength exam: RLE: 5, LLE: 5 DTR: Patellar (R): 2+, Patellar (L): 2+, Achilles Tendon (R): 2+, Achilles Tendon (L): 2+ Psychiatric exam: Present: normal affect, normal mood Course Vital Signs 01/26/18 01/26/18 12:38 16:00 Temperature 98.1 F 98.0 F Pulse Rate 73 56 L Respiratory 16 18 Rate Blood Pressure 100/69 119/60 O2 Sat by Pulse 100 98 Oximetry EKG Findings - EKG Comments: EKG Findings:: Sinus bradycardia, ventricular rate 56, LA interval 146, QTC 420 , no significant ST elevation or depression Medical Decision Making - Medical Decision Making 52-year-old female presents to the emergency department for a chief complaint of low back pain. This started 3 hours prior to arrival. Patient did not take Motrin or Tylenol. Pain is worse with movement. Better at rest. Patient has about 90 flexion of the lumbar spine. She has tenderness across the low back, no spinal pinpoint tenderness. Patient denies injuries. She denies fevers or chills. She denies bladder or bowel changes, saddle anesthesia, numbness or tingling in the lower extremities, no weakness in the lower extremities. DP pulse 2+ bilaterally. Vitals are within normal limits. Patient is not hypertensive. Patient was here yesterday for epigastric pain. She is stating that at this time she has no pain whatsoever and it completely resolved from yesterday. I did repeat a troponin which was negative as well as an EKG which showed no changes. Urine was also repeated which was negative. CT yesterday did not show any significant spinal pathology. On reevaluation today, patient' s pain has significantly improved with Tylenol. She states she is feeling much better. Given patient's symptoms of tenderness across the low back and paraspinal pain with movement as well as significant improvement with Tylenol, patient likely has musculoskeletal pain. He was educated to take Motrin and Tylenol for pain. She left the facility yesterday before receiving CAT scan results from yesterday. Left kidney does have marked atrophy with either stenosis or occlusion. Creatinine was within normal limits yesterday. She is not having any abdominal pain or left CVA tenderness. Patient was educated of this and given a vascular follow-up. She was educated to return if she has any worsening symptoms. - Lab Data Lab Results 01/26/18 01/26/18 Range/Units 15:10 16:00 Troponin I <0.012 (0.000-0.034) ng/mL Urine Color Yellow Urine Appearance Clear (Clear) Urine pH 6.0 (5.0-8.0) Ur Specific [place] 1.020 (1.001-1.035) Urine Protein Negative (Negative) Urine Glucose (UA) Trace H (Negative) Urine Ketones Negative (Negative) Urine Blood Negative (Negative) Urine Nitrite Negative (Negative) Urine Bilirubin Negative (Negative) Urine Urobilinogen <2.0 (<2.0) mg/dL Ur Leukocyte Esterase Negative (Negative) - EKG Data -: EKG Interpreted by Me (And Dr. Gutierrez) When compared to previous EKG there are: no significant change Disposition Clinical Impression: Renal atrophy, Low back pain Disposition: HOME SELF-CARE Condition: Good Instructions: Acute Low Back Pain (ED) Additional Instructions: Please take Motrin and Tylenol for pain. Follow-up with vascular for kidney atrophy. Return to the emergency department if you have any worsening symptoms including fever or worsening back pain. Is patient prescribed a controlled substance at d/c from ED?: No [facility]errals[facility] [Primary Care Provider] - 1-2 days Nawaf Ball MD [STAFF PHYSICIAN] - 1-2 days Time of Disposition: 17:04
[2018-01-26] MEDS ORDERED: KETOROLAC 30 MG/ML 1 ML VIAL IM STA (14:18)
[2018-01-26 16:16] LABS: Appearance,Urine Clear (Clear); Bilirubin,Urine Negative (Negative); Blood,Urine Negative (Negative); Color,Urine Yellow; Glucose,Urine (UA) Trace (Negative); Ketones,Urine Negative (Negative); Leukocyte Esterase,Urine Negative (Negative); Nitrite,Urine Negative (Negative); Protein,Urine Negative (Negative); Urobilinogen,Urine <2.0 mg/dL (<2.0)
[2018-01-26 16:21] VITALS: BP 119/60; PULSE 56; RESP 18; TEMP 98
== END 2018-01-26 17:10 | disposition home or self-care (01) ==
LOC: EC 12:25
DX: N26.1 Atrophy of kidney (terminal) (principal); M54.5 Low back pain; I10 Essential (primary) hypertension; E11.40 Type 2 diabetes mellitus with diabetic neuropathy, unspecified; F32.9 Major depressive disorder, single episode, unspecified; F41.9 Anxiety disorder, unspecified; Z86.73 Personal history of transient ischemic attack (TIA), and cerebral infarction without residual deficits; F17.200 Nicotine dependence, unspecified, uncomplicated; Z79.82 Long term (current) use of aspirin; Z79.84 Long term (current) use of oral hypoglycemic drugs; Z79.899 Other long term (current) drug therapy
CPT/HCPCS: 36415; 93005; 84484; 81003; 87086; 99283; 96372; J1885